=== PATIENT | male | born 1950 | race Caucasian/White ===

== ENCOUNTER 2019-12-06 09:10 | Inpatient (IN) ==
[~2019-12-06 09:10] MED LIST: Vancomycin 1,000 MG, Sodium Chloride IRRigation 1,000 ML IR ONE
[2019-12-06] MEDS ORDERED: Albuterol 2.5 MG/3 ML NEBULIZER IH PRN (09:54)
[2019-12-06] MEDS ORDERED: Ringers Solution, Lactated 1,000 ML IVC SCH (10:00)
[2019-12-06] MEDS ORDERED: *HR* Labetalol 20 MG/4 ML SYRINGE IVP PRN ×2 (10:35→18:04)
[2019-12-06] MEDS ORDERED: *HR* HYDROmorphone 2 MG TABLET PO PRN (10:35)
[2019-12-06] MEDS ORDERED: Ondansetron 4 MG/2 ML VIAL IVP ONE (10:35)
[2019-12-06] MEDS ORDERED: *HR* Promethazine 25 MG/ML VIAL IVP PRN (10:35)
[2019-12-06] MEDS ORDERED: Acetaminophen IV 1,000 MG/100 ML INFUS..BTL IVPB ONE (10:35)
[2019-12-06] MEDS ORDERED: CeFAZolin Syr 2,000MG/20 ML 2,000 MG/20 ML SYRINGE IVPB ONE (11:09)
[2019-12-06] MEDS ORDERED: Heparin 1,000 UNITS/500 mL 500 ML ONE (11:55)
[2019-12-06] MEDS ORDERED: Lidocaine -MPF 2% 2 ML VIAL ONE (12:34)
[2019-12-06] MEDS ORDERED: Isovue-300 150 ML INFUS..BTL ONE (12:36)
[2019-12-06] MEDS ORDERED: Heparin 1,000 UNITS/500 mL 1,500 ML ONE (12:36)
[2019-12-06] MEDS ORDERED: *HR* Heparin 5,000 UNIT/ML VIAL ONE (14:02)
[2019-12-06] MEDS ORDERED: *HR* Rocuronium Bromide 50 MG/5 ML VIAL ONE (14:06)
[2019-12-06] MEDS ORDERED: *HR* FentaNYL (PF) 100 MCG/2 ML VIAL ONE (14:09)
[2019-12-06] MEDS ORDERED: *HR* Labetalol 20 MG/4 ML SYRINGE IVP ONE (14:11)
[2019-12-06] MEDS ORDERED: *HR* Phenylephrine 10 MG/ML VIAL ONE (15:01)
[2019-12-06] MEDS ORDERED: Albumin Human 5% 12.5 GM/250 ML IV.SOLN ONE (15:19)
[2019-12-06] MEDS ORDERED: *HR* Propofol 200 MG/20 ML VIAL IVP ONE (16:07)
[2019-12-06] MEDS ORDERED: Haloperidol Lactate 5 MG/ML VIAL ONE (16:43)
[2019-12-06] MEDS: *HR* HYDROmorphone PF 0.5 MG/0.5 ML SYRINGE IVP PRN ×4 (16:52→17:18)
[2019-12-06] MEDS: Albuterol 2.5 MG/3 ML NEBULIZER IH PRN ×2 (17:07→17:29)
[2019-12-06] MEDS ORDERED: Albuterol 2.5 MG/3 ML NEBULIZER ONE (17:28)
[2019-12-06] MEDS ORDERED: Naloxone 0.4 MG/ML INJ IVP PRN (18:04)
[2019-12-06] MEDS ORDERED: 0.9 % Sodium Chloride 1,000 ML IVC SCH (18:04)
[2019-12-06] MEDS: Ketorolac 15 MG/ML VIAL IVP SCH (18:44)
[2019-12-06] MEDS: *HR* Metoprolol 5 MG/5 ML VIAL IVP SCH (18:44)
[2019-12-06] MEDS: ceFAZolin 2,000 MG in 0.9 % Sodium Chloride 100 ML IVPB SCH (19:37)
[2019-12-07] MEDS: ceFAZolin 2,000 MG in 0.9 % Sodium Chloride 100 ML IVPB SCH (00:06)
[2019-12-07] MEDS: *HR* Metoprolol 5 MG/5 ML VIAL IVP SCH ×2 (00:07→05:42)
[2019-12-07] MEDS: Ketorolac 15 MG/ML VIAL IVP SCH ×2 (00:07→05:41)
[2019-12-07 04:34] LABS: Basophils % 0.1 %; Hematocrit 43.7 % (37.5-50.1); Immature Granulocytes % 0.6 % (0-4); Lymphocytes # 0.9 K/mcL (0.6-4.6); Lymphocytes % 7.9 %; Mean Corpuscular HGB Conc 32.7 g/dL (31.6-35.5); Mean Corpuscular Volume 97.8 fL (83.0-100.0); Mean Platelet Volume 11.2 fL (9.4-12.4); Monocytes # 0.6 K/mcL (0.0-1.3); Monocytes % 5.4 %; Platelet Count 208 K/mcL (140-400); Red Blood Count 4.47 M/mcL (4.19-5.50); Red Cell Distribution Width 13.8 % (11.5-14.5)
[2019-12-07 04:36] LABS: Hemoglobin 14.3 g/dL (12.9-16.9); Neutrophils # 10.2 K/mcL (1.6-8.9); White Blood Count 11.8 K/mcL (4.3-11.1)
[2019-12-07 04:59] LABS: BUN/Creatinine Ratio 14 (6-26); Blood Urea Nitrogen 13 mg/dL (8-23); Carbon Dioxide 24 mEq/L (23-29); Chloride 106 mEq/L (98-107); Glucose 107 mg/dL (70-105); Osmolality,Calculated 285 (280-300); Potassium 4.3 mEq/L (3.5-5.1); Sodium 137 mEq/L (136-145); eGFR For African Americans > 60 (> 60); eGFR For Non-African Americans > 60 (> 60)
[2019-12-07] MEDS ORDERED: *HR* Heparin 5,000 UNIT/ML VIAL SQ SCH ×2 (06:00)
[2019-12-07 07:31] VITALS: BP 139/106
[2019-12-07] MEDS ORDERED: Finasteride 5 MG TABLET PO SCH (09:00)
[2019-12-07] MEDS ORDERED: lisinopriL 20 MG TABLET PO SCH (09:00)
== END 2019-12-07 08:55 | disposition home or self-care (01) | DRG 269 ==
LOC: SAMDAY 09:10 → 2NNU 18:04
PROVIDERS: ADMIT Surgery; ATTEND Surgery